=== PATIENT | female | born 1970 | race Asian ===

== ENCOUNTER 2018-07-23 00:50 | Emergency (ER) | payer OTHER ==
[~2018-07-23] VITALS: Ht 162.6 cm; Wt 59.0 kg
[2018-07-23 00:52] VITALS: Ht 162.6 cm; Wt 59.0 kg
[2018-07-23 03:06] VITALS: BP 133/70
== END 2018-07-23 03:06 | disposition home or self-care (01) ==
LOC: ED 00:50
DX: R07.89 Other chest pain (principal); R00.2 Palpitations; R09.89 Other specified symptoms and signs involving the circulatory and respiratory systems; R06.02 Shortness of breath
CPT/HCPCS: J1885; J2060; J7030

== ENCOUNTER 2018-08-06 12:15 | Emergency (ER) | payer OTHER ==
[~2018-08-06] VITALS: Ht 157.5 cm; Wt 54.9 kg
[2018-08-06 12:18] VITALS: Ht 157.5 cm; Wt 54.9 kg
[2018-08-06 13:09] LABS: BASOPHIL % 0.5 % (0-2); PLATELET COUNT 192 x10^3mcL (130-400)
[2018-08-06 13:19] LABS: ALBUMIN 3.8 g/dL (3.4-5.0); ALKALINE PHOSPHATASE 49 U/L (46-116); ALT/SGPT 28 U/L (14-59); AST/SGOT 10 U/L (15-37); BILIRUBIN TOTAL 0.6 mg/dL (0.20-1.00); CALCIUM 8.8 mg/dL (8.5-10.1); CARBON DIOXIDE 26.9 mmol/L (21-32); CHLORIDE SERUM 102 mmol/L (98-107); CHOLESTEROL 138 mg/dL (<200); CHOLESTEROL/HDL RATIO 2.8; CREATININE SERUM 0.6 mg/dL (0.6-1.0); GFR1 > 60 mL/min; GLUCOSE SERUM 109 mg/dL (74-106); HDL CHOLESTEROL 50 mg/dL (40-60); LIPASE 77 IU/L (73-393); SODIUM SERUM 138 mmol/L (136-145); TRIGLYCERIDES 31 mg/dL (<150)
[2018-08-06 13:27] LABS: POTASSIUM SERUM 2.9 mmol/L (3.5-5.1)
[2018-08-06 13:31] LABS: FREE T4 1.6 ng/dL (0.76-1.46); FREE THYROXINE INDEX 3.9 ug/dL (1.4-4.5); T4(THYROXINE) 10.8 ug/dL (4.7-13.3)
[2018-08-06 13:42] LABS: microscopic required? YES; urine erythrocyte 1+ (NEGATIVE)
[2018-08-06 16:19] LABS: T3 TOTAL 0.83 ng/mL
[2018-08-06 22:49] VITALS: BP 112/55
== END 2018-08-06 22:49 | disposition home or self-care (01) ==
LOC: ED 12:15
PROVIDERS: Specialist
DX: E87.6 Hypokalemia (principal); R07.89 Other chest pain; F41.9 Anxiety disorder, unspecified
CPT/HCPCS: 83880; 84439; J2060; J3480; J7030; Q9967

== ENCOUNTER 2018-08-08 14:48 | Emergency (ER) | payer OTHER ==
[~2018-08-08] VITALS: Ht 162.6 cm; Wt 54.9 kg
[2018-08-08 14:55] VITALS: Ht 162.6 cm; Wt 54.9 kg
[2018-08-08 17:35] VITALS: BP 121/70
== END 2018-08-08 17:35 | disposition home or self-care (01) ==
LOC: ED 14:48
DX: F41.9 Anxiety disorder, unspecified (principal)
CPT/HCPCS: J1885

== ENCOUNTER 2018-08-24 17:37 | Emergency (ER) | payer OTHER ==
[~2018-08-24] VITALS: Ht 157.5 cm; Wt 53.5 kg
[2018-08-24 17:45] VITALS: Ht 157.5 cm; Wt 53.5 kg
[2018-08-24 18:45] LABS: BASOPHIL % 0.4 % (0-2); PLATELET COUNT 188 x10^3mcL (130-400); RED CELL DISTRIBUTION WIDTH 13.9 % (11.5-14.5)
[2018-08-24 18:59] LABS: CARBON DIOXIDE 25.6 mmol/L (21-32); CHLORIDE SERUM 106 mmol/L (98-107); CREATININE SERUM 0.6 mg/dL (0.6-1.0); GFR1 > 60 mL/min; GLUCOSE SERUM 108 mg/dL (74-106); POTASSIUM SERUM 3.5 mmol/L (3.5-5.1); SODIUM SERUM 145 mmol/L (136-145)
[2018-08-24 19:00] VITALS: BP 110/58
[2018-08-24 19:11] LABS: ALBUMIN 4.2 g/dL (3.4-5.0); ALKALINE PHOSPHATASE 51 U/L (46-116); ALT/SGPT 18 U/L (14-59); AST/SGOT 10 U/L (15-37); T4(THYROXINE) 9.5 ug/dL (4.7-13.3)
[2018-08-24 19:12] LABS: TOTAL PROTEIN, SERUM 8.9 g/dL (6.4-8.2)
== END 2018-08-24 19:55 | disposition home or self-care (01) ==
LOC: ED 17:37
PROVIDERS: Emergency Medicine
DX: F41.0 Panic disorder [episodic paroxysmal anxiety] (principal); F32.9 Major depressive disorder, single episode, unspecified
CPT/HCPCS: 36415; J2060